=== PATIENT | female | born 1995 | race Caucasian/White ===

== ENCOUNTER 2020-03-10 17:33 | Inpatient (IN) ==
[2020-03-10] MEDS ORDERED: ONDANSETRON 4 MG/2 ML VIAL IV ONE (18:09)
[2020-03-10] MEDS ORDERED: BUTORPHANOL 2 MG/ML VIAL IV ONE (18:09)
[2020-03-10] MEDS ORDERED: PROMETHAZINE 25 MG/1 ML VIAL IM ONE (18:18)
[2020-03-10] MEDS: LACTATED RINGERS 1,000 ML IV SCH ×2 (18:19→19:46)
[2020-03-10 18:43] LABS: Apearance,Urine CLEAR (Clear); Bacteria,Urine Occasional /HPF (Few); Bilirubin,Urine Negative (Negative); Blood, Urine Negative (Negative); Glucose,Urine (UA) Negative (Negative); Ketones,Urine Negative (Negative); Mucus,Urine Moderate /LPF (Occasional); Nitrite,Urine Negative (Negative); Protein,Urine Negative; RBC,Urine 5 /HPF (0-4); Squamous Epithelial Cell,Urine Occasional /HPF (0-10); Urine Color Yellow (Yellow); WBC,Urine 31 /HPF (0-6)
[2020-03-10] MEDS ORDERED: BUTORPHANOL 2 MG/ML VIAL IV PRN (20:56)
[2020-03-10] MEDS ORDERED: ONDANSETRON 4 MG/2 ML VIAL IV PRN (20:56)
[2020-03-10] MEDS ORDERED: LACTATED RINGERS 500 ML IV PRN (20:56)
[2020-03-10] MEDS ORDERED: ePHEDrine 50 MG/ML AMP IV PRN (20:59)
[2020-03-10] MEDS ORDERED: diphenhydrAMINE 50 MG/1 ML VIAL IV PRN (20:59)
[2020-03-10] MEDS ORDERED: CITRIC ACID/SODIUM CITRATE 30 ML UDCUP PO ONE (20:59)
[2020-03-10] MEDS ORDERED: hydrOXYzine HCL 25 MG/1 ML VIAL IM PRN (20:59)
[2020-03-10] MEDS ORDERED: PROMETHAZINE 25 MG/1 ML VIAL IM PRN (20:59)
[2020-03-10] MEDS ORDERED: NALOXONE 0.4 MG/ML VIAL IV PRN (20:59)
[2020-03-10] MEDS ORDERED: FAMOTIDINE 20 MG/2 ML VIAL IV ONE (20:59)
[2020-03-10] MEDS ORDERED: fentaNYL 2 MCG/ROPIV 0.2% EPID 100 ML EPIDURAL SCH (21:00)
[2020-03-10] MEDS ORDERED: AMPICILLIN INJ 2,000 MG in SODIUM CHLORIDE 0.9% 100 ML IV ONE (21:10)
[2020-03-10 21:28] LABS: Basophils % 0.2 % (0.0-0.8); Eosinophils % 0.1 % (0.00-10.9); Hematocrit 39.5 VOL% (35.7-47.0); Hemoglobin 12.9 GM/DL (12.0-16.0); Immature Granulocytes % 0.5 %; Immature Granulocytes Absolute 0.09 #; Lymphocytes # 1.5 10*3/uL (1.4-4.0); Lymphocytes % 8.4 % (21.3-54.2); Mean Corpuscular HGB Conc 32.7 GM/DL (32-36); Mean Platelet Volume 12.4 FL (9.6-12.0); Monocytes % 5.7 % (1.7-12.7); Neutrophils % 85.1 % (38.7-73.9); Platelet Count 194 T/CUMM (130-400); Red Blood Count 4.16 MC/CUMM (3.8-5.5); Red Cell Distribution Width 12.7 % (9.3-17.3); White Blood Count 17.4 T/CUMM (4-12)
[2020-03-10 21:46] LABS: Albumin 2.2 G/DL (3.4-5.0); Bilirubin,Total 0.5 MG/DL (0.2-1.0); Calcium 9.1 MG/DL (8.5-10.1); Osmolality,Calculated 266.1 MOS/KG (273-304); Total Protein 6.5 G/DL (6.4-8.3)
[2020-03-10] MEDS ORDERED: TERBUTALINE 1 MG/1 ML VIAL SUBCUT ONE (23:08)
[2020-03-11] MEDS ORDERED: ACETAMINOPHEN 500 MG TABLET PO ONE (02:02)
[2020-03-11] MEDS: AMPICILLIN INJ 1,000 MG in SODIUM CHLORIDE 0.9% 100 ML IV SCH ×2 (02:07→05:40)
[2020-03-11] MEDS: LACTATED RINGERS 1,000 ML IV SCH (03:15)
[2020-03-11] MEDS ORDERED: LIDOCAINE 1% 50 ML VIAL ONE (07:02)
[2020-03-11] MEDS ORDERED: miSOPROStoL 200 MCG TABLET ONE (07:02)
[2020-03-11] MEDS ORDERED: METHYLERGONOVINE 0.2 MG/1 ML AMP ONE (07:03)
[2020-03-11] MEDS ORDERED: CARBOPROST TROMETHAMINE 250 MCG/ML AMP IM ONE (07:03)
[2020-03-11] MEDS ORDERED: OXYTOCIN/LR 20 UNIT/1,000 ML BAG IV ONE ×2 (07:04→07:42)
[2020-03-11] MEDS ORDERED: RHO(D) IMMUNE GLOBULIN 300 MCG SYRINGE IM ONE (07:42)
[2020-03-11] MEDS ORDERED: DIPH/TET/ACEL PERT BOOSTER VACCINE 0.5 ML VIAL IM ONE (07:42)
[2020-03-11] MEDS ORDERED: oxyCODONE/ACETAMINOPHEN 5-325 MG TABLET PO PRN ×2 (07:42)
[2020-03-11] MEDS ORDERED: LANOLIN 50% CREAM 0.3 OZ TUBE TOP PRN (07:42)
[2020-03-11] MEDS ORDERED: MEASLES/MUMPS/RUBELLA VACCINE 0.5 ML VIAL SUBCUT ONE (07:42)
[2020-03-11] MEDS ORDERED: BISACODYL 10 MG SUPP RECTAL PRN (07:42)
[2020-03-11] MEDS ORDERED: WITCH HAZEL PADS 100/JAR TOP PRN (07:42)
[2020-03-11] MEDS ORDERED: HYDROCORTISONE 2.5% RECTAL CREAM 30 GM TUBE TOP PRN (07:42)
[2020-03-11] MEDS ORDERED: ACETAMINOPHEN 325 MG TABLET PO PRN (07:42)
[2020-03-11] MEDS ORDERED: BENZOCAINE 20%/MENTHOL 0.5% SPRAY 56 GM CAN TOP PRN (07:42)
[2020-03-11] MEDS ORDERED: ONDANSETRON 4 MG/2 ML VIAL IV PRN (07:42)
[2020-03-11 07:43] LABS: Cord Arterial Blood HCO3 20.7 MMOL/L
[2020-03-11 07:44] LABS: Cord Venous Blood HCO3 21.2 MMOL/L; Cord Venous Blood PCO2 40.7 MMHG; Cord Venous Blood PO2 23.9 MMHG
[2020-03-11] MEDS: IBUPROFEN 800 MG TABLET PO PRN ×2 (10:10→19:18)
[2020-03-11] MEDS: DOCUSATE SODIUM 100 MG CAPSULE PO SCH (19:22)
[2020-03-12 07:10] LABS: Basophils % 0.2 % (0.0-0.8); Eosinophils # 0.2 10*3/uL (0.0-0.87); Eosinophils % 1.4 % (0.00-10.9); Hematocrit 31.5 VOL% (35.7-47.0); Hemoglobin 10.2 GM/DL (12.0-16.0); Immature Granulocytes % 0.7 %; Immature Granulocytes Absolute 0.09 #; Lymphocytes # 1.7 10*3/uL (1.4-4.0); Mean Corpuscular HGB Conc 32.4 GM/DL (32-36); Mean Corpuscular Volume 96.3 FL (87-102); Mean Platelet Volume 12.6 FL (9.6-12.0); Monocytes % 8.7 % (1.7-12.7); Platelet Count 146 T/CUMM (130-400); Red Blood Count 3.27 MC/CUMM (3.8-5.5); Red Cell Distribution Width 13.1 % (9.3-17.3); White Blood Count 12.8 T/CUMM (4-12)
[2020-03-12] MEDS: DOCUSATE SODIUM 100 MG CAPSULE PO SCH (07:33)
[2020-03-12] MEDS: IBUPROFEN 800 MG TABLET PO PRN (07:37)
[2020-03-12 11:38] VITALS: BP 114/65
== END 2020-03-12 14:55 | disposition home or self-care (01) | DRG 807 ==
LOC: N.LDOUT 17:33 → N.LD 17:39 → N.OB 03-11 09:07
PROVIDERS: ADMIT Obstetrics & Gynecology; ATTEND Obstetrics & Gynecology